=== PATIENT | male | born 1960 | race Caucasian/White ===

== ENCOUNTER → 2017-01-09 | Outpatient (CLI) | payer BC ==
[~2017-01-09] MED LIST: AMIT50TA3 PO; ASP81TEC PO; ASPI-983 PO; ATOR20TA66 PO; ATR20T PO; Atorvastatin Calcium PO; BRILINTA 90 MG; CETI10CA PO; FINA5TAB6 PO; FLUT16SP22; LISI10TA2 PO; LISI20TA PO; Lisinopril PO; METO-333 PO; NITR0.4T SL; NTR.4SL SL; OMEP-10 PO; ONDAN4ODT PO; OXYC500S2 PO; PANT40TA2 PO; PANT40TA3 PO; PNT40TEC PO; RANO500T3 PO; TAMS0.4C2 PO; TAMS0.4C98 PO; TICA60TA PO; TICA90TA PO
== END ==
LOC: CARD 10:31
PROVIDERS: ATTEND Physician Assistant
DX: I25.10 Atherosclerotic heart disease of native coronary artery without angina pectoris (principal); K21.9 Gastro-esophageal reflux disease without esophagitis; I10 Essential (primary) hypertension; E78.2 Mixed hyperlipidemia
CPT/HCPCS: 93306

== ENCOUNTER 2018-03-17 16:05 | Outpatient (RCR) | payer BC | END 2018-04-16 | disposition home or self-care (01) | LOC: CR3 16:05 | PROVIDERS: ATTEND Internal Medicine Cardiovascular Disease | DX: Z29.8 Encounter for other specified prophylactic measures (principal) ==

== ENCOUNTER → 2018-07-07 | Outpatient (CLI) | payer BC | END | disposition home or self-care (01) | LOC: PREOP 05:38 | PROVIDERS: ATTEND Surgery | DX: Z01.818 Encounter for other preprocedural examination (principal) ==

== ENCOUNTER → 2018-07-09 | Outpatient (CLI) | payer BC ==
--- NOTE | 2018-07-09 09:37 | Diagnostic Imaging Report ---
PROCEDURE: US Gallbladder. TECHNIQUE: Multiple real-time grayscale images were obtained over the right upper quadrant in various projections. INDICATION: Right upper quadrant pain. FINDINGS: The liver is normal in size at 15.5 cm. No discrete liver mass is identified. Portal vein is patent and shows normal direction of flow. There does appear to be generalized gallbladder wall thickening measuring up to 4 mm. No gallstones are seen. There is no sludge. No pericholecystic fluid or biliary duct dilatation is identified. The pancreas is poorly visualized. The right kidney is unremarkable. There is no ascites. IMPRESSION: There is mild gallbladder wall thickening, without evidence of cholelithiasis. Acalculous cholecystitis cannot be entirely excluded. If there is concern for cholecystitis, nuclear medicine HIDA scan could be performed for further evaluation. The study is otherwise unremarkable. Dictated by: Dictated on workstation # [id number]
== END ==
LOC: RAD 06:42
PROVIDERS: ATTEND Surgery
DX: K82.9 Disease of gallbladder, unspecified (principal); K81.9 Cholecystitis, unspecified
CPT/HCPCS: 76705

== ENCOUNTER → 2018-07-16 | Outpatient (CLI) | payer BC ==
[~2018-07-16] MED LIST changes: +CATHETER FLUSH 10 ML SYR IV PRN
--- NOTE | 2018-07-16 12:27 | Diagnostic Imaging Report ---
INDICATION: Right upper quadrant pain. TECHNIQUE: Patient was administered 5.1 mCi technetium 99m Choletec intravenously and imaging over the abdomen was performed. At one hour, patient ingested a can of Ensure and gallbladder ejection fraction was calculated. FINDINGS: There is homogeneous uptake of activity by the liver. Prompt excretion of activity is seen into the common duct and gallbladder. Normal passage of activity into the small bowel is seen. Gallbladder ejection fraction is abnormally low at 3%. Normal values are 33% or greater. IMPRESSION: 1. No evidence of cystic duct or common bile duct obstruction. 2. Abnormally low gallbladder ejection fraction of 3%. Dictated by: Dictated on workstation # [id number]
== END ==
LOC: CARD 09:48
PROVIDERS: ATTEND Surgery
DX: R10.11 Right upper quadrant pain (principal)
CPT/HCPCS: 78227

== ENCOUNTER 2018-08-09 05:35 | Outpatient (CLI) | payer BC ==
[~2018-08-09] VITALS: Ht 172.7 cm; Wt 70.8 kg
[~2018-08-09 05:35] MED LIST changes: -CATHETER FLUSH 10 ML SYR IV PRN
[2018-08-09] MEDS ORDERED: TAMS0.4C98 PO (14:50)
== END 2018-08-09 15:04 | disposition home or self-care (01) ==
LOC: PREOP 05:35
PROVIDERS: ATTEND Surgery
DX: Z01.818 Encounter for other preprocedural examination (principal)

== ENCOUNTER 2018-08-12 07:46 | Day surgery (SDC) | payer BC ==
[~2018-08-12] VITALS: Ht 172.7 cm; Wt 70.8 kg
[2018-08-12] MEDS ORDERED: BUP/EPI 0.5% 1:200,000 (SENSORCAINE) 30 ML VIAL ONE (07:56)
[2018-08-12 08:00] VITALS: BP 134/85
[2018-08-12] MEDS ORDERED: CLINDAMYCIN 600 MG/50 ML IVPB 50 ML IV ONE (08:15)
[2018-08-12] MEDS ORDERED: CATHETER FLUSH 10 ML SYR IV PRN (08:15)
--- NOTE | 2018-08-12 08:22 | Progress Note-Pre Operative ---
Pre-Operative Progress Note H&P Reviewed The H&P was reviewed, patient examined and no changes noted. Date Seen by Provider: Aug 12, 2018 Time Seen by Provider: 08:20 Date H&P Reviewed: Aug 12, 2018 Time H&P Reviewed: 08:15 Pre-Operative Diagnosis: Biliary Dyskinesia FRANCISCO CAMP APRN Aug 12, 2018 08:22
[2018-08-12] MEDS ORDERED: HYDR-3816 PO ×2 (08:24)
--- NOTE | 2018-08-12 08:26 | Discharge Inst-Surgical ---
D/C Lap Instructions-KIDO New, Converted, or Re-Newed RX: RX on Chart Follow Up Appt in 2 weeks Activity as tolerated No driving for 24 hours No driving while on pain medications Incentive Spirometry use every 2 hours while awake Regular Diet Symptoms to Report: Fever over 101 degree F, Nausea/Vomiting Infection Signs and Symptoms to report: Increased redness, Foul odor of wound, Increased drainage Bathing instructions: May shower Operative Area Clean/Dry; Keep incision clean/dry If any problems/questions: Contact your physician or go to Emergency Room FRANCISCO CAMP APRN Aug 12, 2018 08:26
[2018-08-12] MEDS ORDERED: morphine INJ 10 MG/ML 1ML (SYR OR VIAL) IVP PRN (08:30)
[2018-08-12] MEDS ORDERED: ONDANSETRON 4 MG/2 ML (SDV) Z0FRAN IVP PRN ×2 (08:30→10:30)
[2018-08-12] MEDS: LACTATED RINGERS 1,000 ML IV PRN ×2 (08:30→09:55)
[2018-08-12] MEDS ORDERED: ACETAMINOPHEN 325 MG TABLET PO PRN (08:30)
[2018-08-12] MEDS ORDERED: HYDROcodone/APAP 5 MG/325 MG (LORTAB) TAB PO ONE (08:30)
[2018-08-12 08:41] LABS: BASOPHILS % (AUTO) 1 % (0-10); EOSINOPHILS # (AUTO) 0.2 10^3/uL (0.0-0.3); EOSINOPHILS % (AUTO) 5 % (0-10); HEMATOCRIT 40 % (40-54); HEMOGLOBIN 13.8 G/DL (13.3-17.7); LYMPHOCYTES # (AUTO) 1.5 X 10^3 (1.0-4.0); LYMPHOCYTES % (AUTO) 36 % (12-44); MEAN CORPUSCULAR HEMOGLOBIN 29 PG (25-34); MEAN CORPUSCULAR HGB CONC 34 G/DL (32-36); MEAN CORPUSCULAR VOLUME 86 FL (80-99); MEAN PLATELET VOLUME 10.3 FL (7.4-10.4); MONOCYTES # (AUTO) 0.5 X 10^3 (0.0-1.0); MONOCYTES % (AUTO) 13 % (0-12); NEUTROPHILS # (AUTO) 1.8 X 10^3 (1.8-7.8); NEUTROPHILS % (AUTO) 45 % (42-75); PLATELET COUNT 193 10^3/uL (130-400); RED CELL DISTRIBUTION WIDTH 13.6 % (10.0-14.5)
[2018-08-12] MEDS ORDERED: proPOfol 200 MG/20 ML (DIPRIVAN) VIAL IV ONE (08:50)
[2018-08-12] MEDS ORDERED: LIDOCAINE PF 2% 5 ML (XYLOCAINE) VIAL ONE (08:50)
[2018-08-12] MEDS ORDERED: SEVOFLURANE (ULTANE) 15 ML INHAL SOLN ONE ×2 (08:50→10:02)
[2018-08-12] MEDS ORDERED: DEXAMETHASONE 10 MG/ML (DECADRON) 1 ML VIAL ONE (08:50)
[2018-08-12] MEDS ORDERED: ONDANSETRON 4 MG/2 ML (SDV) Z0FRAN ONE (08:50)
[2018-08-12] MEDS ORDERED: ROCURONIUM 10 MG/ML 5 ML SYRINGE IV ONE (08:50)
[2018-08-12] MEDS ORDERED: MIDAZOLAM 2 MG/2 ML (VERSED) VIAL ONE (08:51)
[2018-08-12] MEDS ORDERED: fentaNYL INJECTION 100 MCG/2 ML AMP ONE ×2 (08:51→09:59)
[2018-08-12] MEDS ORDERED: GLYCOPYRROLATE 0.2 MG/ML (ROBINUL) 2 ML VIAL ONE ×2 (09:22→09:52)
[2018-08-12] MEDS ORDERED: PHENYLEPHRINE 100 MCG/ML 10 ML (ANESTHESIA) SYR ONE (09:33)
[2018-08-12] MEDS ORDERED: NEOSTIGMINE 1 MG/ML 5 ML SYRINGE ONE (09:52)
[2018-08-12] MEDS ORDERED: morphine INJ 10 MG/ML 1ML (SYR OR VIAL) ONE (10:00)
[2018-08-12] MEDS ORDERED: KETOROLAC 30 MG/ML VIAL ONE (10:05)
--- NOTE | 2018-08-12 10:20 | Progress Note-Post Operative ---
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
[2018-08-12] MEDS ORDERED: HYDROmorphone 2 MG/ML VIAL (DILAUDID) IV ONE (10:30)
[2018-08-12] MEDS ORDERED: morphine INJ 10 MG/ML 1ML (SYR OR VIAL) IVP ONE (11:00)
[2018-08-12 11:20] VITALS: BP 136/79
[2018-08-12 11:50] VITALS: BP 143/86
[2018-08-12 12:20] VITALS: BP 134/74
--- NOTE | 2018-08-12 13:02 | Anesthesia-General Post-Op ---
General Patient Condition Mental Status/LOC: Same as Preop Cardiovascular: Satisfactory Nausea/Vomiting: Absent Respiratory: Satisfactory Pain: Controlled Complications: Absent Post Op Complications Complications None Follow Up Care/Instructions Patient Instructions None needed. Anesthesia/Patient Condition Patient Condition Patient is doing well, no complaints, stable vital signs, no apparent adverse anesthesia problems. No complications reported per nursing. JOY RAMIREZ CRNA Aug 12, 2018 13:02
[2018-08-12] MEDS ORDERED: HYDROcodone/APAP 5 MG/325 MG (LORTAB) TAB ONE (13:05)
[2018-08-12 13:15] VITALS: BP 134/74
--- NOTE | 2018-08-12 14:40 | OPERATIVE REPORT ---
DATE OF SERVICE: 08/12/2018 ATTENDING PRIMARY CARE PHYSICIAN: Dr. Frey. PREOPERATIVE DIAGNOSIS: Symptomatic biliary dyskinesia. POSTOPERATIVE DIAGNOSIS: Symptomatic biliary dyskinesia. PROCEDURE: Laparoscopic cholecystectomy. SURGEON: Bronson Awan MD. DIRECTOR COLLEGE: Zach King APRN. ANESTHESIA: General endotracheal. ESTIMATED BLOOD LOSS: Minimal. FINDINGS: Dilated gallbladder with mild gallbladder wall thickening. DISPOSITION: The patient tolerated the procedure well. INDICATIONS: The patient is a 57-year-old male who we have seen before in the past. He had a significant reflux as well as a hiatal hernia, requiring a Michelle fundoplication 05/09/2010. He was seen in the office recently with nausea as well as vomiting usually after meals as well as a bloating sensation. He also had reported radiation of pain towards the back as well as the right shoulder. An ultrasound performed did not show any gallstones; however, HIDA scan was performed which showed a very low ejection fraction of 3% consistent with a symptomatic biliary dyskinesia. DESCRIPTION OF PROCEDURE: The patient was brought to the operating room, laid supine on the table. After adequate IV pain and sedating medications and general endotracheal intubation, the abdomen was prepped and draped in standard surgical fashion. A 0.5% Marcaine with epinephrine was used to anesthetize the overlying skin in the left upper abdominal quadrant and a transverse skin incision made using a 15 blade. An 0 silk suture was applied to the medial aspect of the incision for retraction and a Veress needle inserted with a low opening pressure of 0 mmHg and the abdomen was insufflated to 15 mmHg pressure. The Veress needle removed and a 5 mm trocar placed followed by a 5 mm 45-degree angle laparoscope visualizing the peritoneal cavity. A 4-quadrant abdominal exploration was performed. There was a distended gallbladder as well as mild gallbladder wall thickening. No other abnormalities were detected. Under direct visualization, we then proceeded to place a supraumbilical 10 mm port after the skin and peritoneal lining were anesthetized using 0.5% Marcaine with epinephrine and a transverse skin incision made using a 15 blade. In a similar manner, a right upper abdominal quadrant 5 mm port was placed. The patient was then placed in reverse Trendelenburg position as well as plane right side up, left side down. The fundus of the gallbladder was then retracted anteriorly and superiorly. The hepatoduodenal ligament was then opened using a blunt dissection as well as electrocautery on the hook instrument. The entire critical view of safety was identified including the cystic duct and artery, the triangle of Calot as well as the cystic duct and artery as the only two structures going into the gallbladder as well as the cystic plate behind the proximal gallbladder. A timeout was then taken. The cystic duct and artery were clipped proximally and distally and cut with EndoShears. The gallbladder was then dissected off the liver bed using cautery on the hook instrument with visualization of good hemostasis as well as no leaking ducts of Luschka. The gallbladder was removed through the 10 mm port site using an EndoCatch bag. The 10 mm port site fascia and peritoneum were then closed under direct visualization using a Patrice-Erika device and an 0 Vicryl suture. The abdomen was desufflated and remaining ports removed. All skin incisions were closed using 4-0 Monocryl running subcuticular suture. Wounds were then cleaned and covered with Dermabond. The patient tolerated the procedure well. We will start IV and oral pain medication as well as a clear liquid diet. Once he is tolerating clears, has good pain control with oral pain medications, ambulating well, we will discharge him home. He will be instructed to do no heavy lifting or exertion for the next two weeks. Job ID: [id number] DocumentID: [id number] Dictated Date: 08/12/2018 10:17:54 Roto Mixer Operator Date: 08/12/2018 14:40:13 Dictated By: BRONSON AWAN MD
== END 2018-08-12 13:15 | disposition home or self-care (01) ==
LOC: SDC 07:46
PROVIDERS: ATTEND Surgery
DX: K81.1 Chronic cholecystitis (principal); I25.10 Atherosclerotic heart disease of native coronary artery without angina pectoris; I10 Essential (primary) hypertension; K21.9 Gastro-esophageal reflux disease without esophagitis; G47.33 Obstructive sleep apnea (adult) (pediatric); E78.00 Pure hypercholesterolemia, unspecified; N40.1 Benign prostatic hyperplasia with lower urinary tract symptoms; N39.498 Other specified urinary incontinence; Z87.891 Personal history of nicotine dependence; Z79.82 Long term (current) use of aspirin; Z79.899 Other long term (current) drug therapy; Z95.5 Presence of coronary angioplasty implant and graft
CPT/HCPCS: 36415; 85025; 87081; 94664

== ENCOUNTER 2018-08-12 18:43 | Emergency (ER) | payer BC ==
[~2018-08-12] VITALS: Ht 172.7 cm; Wt 71.2 kg
[~2018-08-12 18:43] MED LIST changes: +HYDR-3816 PO
[2018-08-12] MEDS ORDERED: LIDOCAINE UROJET 2% GEL 10 ML PKG TOP ONE (19:30)
[2018-08-12] MEDS ORDERED: ONDANSETRON 4 MG (ZOFRAN) ORAL DISSOLVE TAB PO ONE (19:45)
--- NOTE | 2018-08-12 20:07 | ED GU-Male ---
General Chief Complaint: -Male Stated Complaint: CAN'T URINATE,POST GALLBLADDER OPERATION Nursing Triage Note: pt presents to ed with complaints of difficulty urinating after cholecystectomy surgery earlier today. pt reports his bladder feels full but he has been unable to void since this am. Source: patient Exam Limitations: no limitations History of Present Illness Date Seen by Provider: Aug 12, 2018 Time Seen by Provider: 20:04 Initial Comments to ER per private vehicle with reports of inability to urinate. He had a laparoscopic cholecystectomy done earlier today by Dr. Mcintosh. This was about 9 AM , no he was released from the hospital at about 3 PM. He has been unable to urinate. He does take Flomax for prostatic hypertrophy and follows with Dr. Deleon. Severity/Quality: moderate Location: suprapubic Radiation: none Activities at Onset: none Prior Genitourinary Problems: none Associated Symptoms: No fever/chills Allergies and Home Medications Allergies Coded Allergies: Penicillins (Unverified Allergy, Mild, HIVES, HAS RECEIVED ANCEF PREVIOUSLY, 08/09/18) Home Medications Aspirin 81 Mg Tablet.dr, 162 MG PO DAILY, (Reported) TAKES 2 (81MG) TABLETS Atorvastatin Calcium 20 Mg Tablet, 20 MG PO HS, (Reported) Hydrocodone/Acetaminophen 1 Each Tablet, 1-2 TAB PO Q4H Prescribed by: FRANCISCO CAMP on 08/12/18 0824 Pantoprazole Sodium 40 Mg Tablet.dr, 40 MG PO BID, (Reported) Tamsulosin HCl 0.4 Mg Cap.er.24h, 0.8 MG PO 1730, (Reported) TAKES 2 (0.4MG) CAPSULES Patient Home Medication List Home Medication List Reviewed: Yes Review of Systems Review of Systems Constitutional: see HPI EENTM: see HPI Respiratory: no symptoms reported Cardiovascular: no symptoms reported Genitourinary: no symptoms reported Musculoskeletal: no symptoms reported Skin: no symptoms reported Psychiatric/Neurological: No Symptoms Reported Endocrine: No Symptoms Reported Hematologic/Lymphatic: No Symptoms Reported Past Eyamikj-Qheekz-Kkvssm Hx Patient Social History Alcohol Use: Denies Use Recreational Drug Use: Yes (35 YRS AGO) Smoking Status: Former Smoker Type Used: Cigarettes Former Smoker, Quit: Mar 11, 1977 2nd Hand Smoke Exposure: Yes Recent Foreign Travel: No Contact w/Someone Who Travel: No Recent Infectious Disease Expo: No Recent Hopitalizations: No Immunizations Up To Date Tetanus Booster (TDap): Less than 5yrs PED Vaccines UTD: No Seasonal Allergies Seasonal Allergies: Yes Past Medical History Surgeries: Yes (coronary stent x2, hitial hernia repair) Coronary Stent, Gallbladder Respiratory: Yes Sleep Apnea Currently Using CPAP: Yes Currently Using BIPAP: No Cardiac: Yes (2 NM, stents placed) Heart Attack, High Cholesterol, Hypertension Neurological: No Reproductive Disorders: No Sexually Transmitted Disease: No HIV/AIDS: No Genitourinary: Yes Prostate Problems Gastrointestinal: Yes Gastroesophageal Reflux, Chronic Diarrhea, Gall Bladder Disease Musculoskeletal: Yes (MUSCLE SPASMS IN BACK and legs) Endocrine: No HEENT: Yes (READING GLASSES) Loss of Vision: Bilateral Hearing Impairment: Hard of Hearing Cancer: No Psychosocial: No Integumentary: Yes (DRY AREAS) Blood Disorders: No Adverse Reaction/Blood Tranf: No Family Medical History Cancer 19 FATHER (BLADDER) Family history: Cardiovascular disease 19 FATHER, Onset:50's - 60 (BYPASS) Physical Exam Vital Signs Vital Signs - First Documented 08/12/18 19:07 Temp 97.4 Pulse 80 Resp 16 B/P (MAP) 172/102 (125) Pulse Ox 97 Capillary Refill : Less Than 3 Seconds Height, Weight, BMI Height: 5'8.00" Weight: 157lbs. 0.0oz. 71.130296ug; 23.7 BMI Method:Stated General Appearance: WD/WN, no apparent distress HEENT: PERRL/EOMI, normal ENT inspection Neck: non-tender, full range of motion Respiratory: no respiratory distress Gastrointestinal: normal bowel sounds, non tender Neurologic/Psychiatric: alert, normal mood/affect, oriented x 3 Skin: normal color, warm/dry Comments Urojet was instilled into the urethra. A 14 Wolof straight catheter was inserted into the bladder. Total of 1000 cc clear yellow urine drained. Sample sent to lab. Progress/Results/Core Measures Suspected Sepsis Recent Fever Within 48 Hours: No Infection Criteria Present: None New/Unexplained Altered Menta: No Sepsis Screen: No Definite Risk SIRS Temperature:97.4 Pulse: 80 Respiratory Rate: 16 Blood Pressure 172 /102 Mean: 125 Results/Orders Lab Results Laboratory Tests Test 08/12/18 19:50 Range/Units Urine Color YELLOW Urine Clarity SLIGHTLY CLOUDY Urine pH 7 5-9 Urine Specific [place] 1.010 L 1.016-1.022 Urine Protein NEGATIVE NEGATIVE Urine Glucose (UA) NEGATIVE NEGATIVE Urine Ketones NEGATIVE NEGATIVE Urine Nitrite NEGATIVE NEGATIVE Urine Bilirubin NEGATIVE NEGATIVE Urine Urobilinogen NORMAL NORMAL MG/DL Urine Leukocyte Esterase NEGATIVE NEGATIVE Urine RBC (Auto) NEGATIVE NEGATIVE Urine RBC 0-2 /HPF Urine WBC 0-2 /HPF Urine Crystals NONE /LPF Urine Bacteria NEGATIVE /HPF Urine Casts NONE /LPF Urine Mucus NEGATIVE /LPF Urine Culture Indicated NO My Orders Orders - JO ANN AGUILAR APRN Lidocaine 2% (Urojet) (Xylocaine Urojet) (08/12/18 19:30) Ondansetron Oral Dissolve Tab (Zofran (08/12/18 19:45) Hydrocodone/Apap 5/325 Tablet (Lortab 5 (08/12/18 20:30) Medications Given in ED Current Medications Medications Dose Ordered Sig/Barak Route Start Time Stop Time Status Last Admin Dose Admin Acetaminophen/ Hydrocodone Bitart 1 tab ONCE ONCE PO 08/12/18 20:30 08/12/18 20:31 DC 08/12/18 20:31 1 TAB Lidocaine HCl 10 ml ONCE ONCE TOP 08/12/18 19:30 08/12/18 19:31 DC 08/12/18 19:48 10 ML Ondansetron HCl 8 mg ONCE ONCE PO 08/12/18 19:45 08/12/18 19:46 DC 08/12/18 19:48 8 MG Vital Signs/I&O 08/12/18 19:07 Temp 97.4 Pulse 80 Resp 16 B/P (MAP) 172/102 (125) Pulse Ox 97 Capillary Refill : Less Than 3 Seconds Blood Pressure Mean: 125 Departure Communication (Admissions) 2205-despite waiting about an hour after the straight catheter, he attempted to urinate but was unable to do so. We decided to proceed with a indwelling Castillo catheter, 16 Wolof was inserted by me in a sterile technique. This was attached to a leg bag. I also spoke with Dr. Deleon, his urologist who states that patient can come in tomorrow at 11 AM to have the catheter removed or as he would recommend leaving it in place over the weekend until Thursday afternoon to have it removed. Impression Primary Impression: Postoperative urinary retention Disposition: 01 HOME, SELF-CARE Condition: Stable Departure-Patient Inst. Decision time for Depature: 20:06 Referrals: ESPERANZA TERAN DO (PCP/Family) Primary Care Physician Patient Instructions: Urinary Retention Add. Discharge Instructions: 1. You may follow up with Dr. Deleon tomorrow at 11 AM or if you wish to leave this in place until Thursday morning, call tomorrow for an appointment time on Thursday. Return to ER for any concerns in the meantime. All discharge instructions reviewed with patient and/or family. Voiced understanding. Copy Copies To 1: BRONSON MCINTOSH MD, PETER J APRN Aug 12, 2018 20:07
[2018-08-12 20:08] LABS: BILIRUBIN,URINE NEGATIVE (NEGATIVE); CLARITY,URINE SLIGHTLY CLOUDY; COLOR,URINE YELLOW; GLUCOSE, URINE (UA) NEGATIVE (NEGATIVE); KETONES,URINE NEGATIVE (NEGATIVE); LEUKOCYTE ESTERASE ,URINE NEGATIVE (NEGATIVE); NITRITE,URINE NEGATIVE (NEGATIVE); PH,URINE 7 (5-9); PROTEIN,URINE NEGATIVE (NEGATIVE); UROBILINOGEN,URINE NORMAL (NORMAL)
[2018-08-12 20:17] LABS: BACTERIA,URINE NEGATIVE /HPF; RBC,URINE 0-2 /HPF; WBC,URINE 0-2 /HPF
[2018-08-12] MEDS ORDERED: HYDROcodone/APAP 5 MG/325 MG (LORTAB) TAB PO ONE (20:30)
[2018-08-12 22:09] VITALS: BP 168/102
== END 2018-08-12 22:11 | disposition home or self-care (01) ==
LOC: EDUNIT# 18:43 → ER 18:45
DX: N99.89 Other postprocedural complications and disorders of genitourinary system (principal); R33.9 Retention of urine, unspecified; G47.30 Sleep apnea, unspecified; I25.2 Old myocardial infarction; E78.00 Pure hypercholesterolemia, unspecified; K21.9 Gastro-esophageal reflux disease without esophagitis; I10 Essential (primary) hypertension; Z88.0 Allergy status to penicillin; Z87.19 Personal history of other diseases of the digestive system; Z79.82 Long term (current) use of aspirin; Z90.49 Acquired absence of other specified parts of digestive tract; Z87.448 Personal history of other diseases of urinary system; Z87.891 Personal history of nicotine dependence; Z95.5 Presence of coronary angioplasty implant and graft; Z98.890 Other specified postprocedural states
CPT/HCPCS: 51701; 51702; 81000

== ENCOUNTER → 2018-12-29 | Outpatient (CLI) | payer BC ==
[~2018-12-29] VITALS: Ht 172.7 cm; Wt 75.3 kg
[~2018-12-29] MED LIST changes: +CATHETER FLUSH 10 ML SYR IV PRN
--- NOTE | 2018-12-30 11:58 | STRESS TEST ---
DATE OF SERVICE: 12/29/2018 REFERRING PHYSICIAN: Dr. Frey. Baseline heart rate is 57, baseline blood pressure 141/76, baseline EKG is sinus rhythm with no ischemic changes. IN SUMMARY: The patient was injected with 10.73 mCi of technetium-99 Myoview and the resting images were obtained. Then, the patient started exercising with a baseline heart rate, blood pressure and EKG mentioned above. After exercising for 8 minutes and 10 seconds, the patient had some chest pain, had [address] depression in II, III, aVF, V4, V5. Blood pressure was 180/90. Test was terminated. During recovery, EKG started improving, continued to have T-wave inversion. Denied any active chest pain after resting. The resting and stress images were reviewed and compared in the short axis, horizontal long axis and vertical long axis views. Review of the images showed reversible ischemia involving the whole inferior wall and inferolateral wall. SSS is 16, SDS 14, TID value 1.09. On the gated images, the left ventricle appeared to be in normal size with normal contractility. Calculated ejection fraction 54%. IN CONCLUSION: 1. Fair exercise tolerance, a total of 8 minutes and 10 seconds on standard Pablo protocol, total of 9.9 METS achieving 85% of maximum expected heart rate. 2. Exercise induced chest pain relieved by rest. 3. Positive EKG changes with [address] depression in II, III, aVF, V4 and V5. 4. Reversible ischemia involving the whole inferior wall and inferolateral wall. 5. Normal left ventricular size with normal contractility. Calculated ejection fraction of 54%. Job ID: [id number] DocumentID: [id number] Dictated Date: 12/30/2018 08:36:46 Training And Development Professional Date: 12/30/2018 10:38:08 Dictated By: LARISSA CARBONE MD
== END ==
LOC: CARD 08:05
PROVIDERS: ATTEND Physician Assistant
DX: I25.10 Atherosclerotic heart disease of native coronary artery without angina pectoris (principal); I11.9 Hypertensive heart disease without heart failure; I25.89 Other forms of chronic ischemic heart disease; K21.9 Gastro-esophageal reflux disease without esophagitis
CPT/HCPCS: 78452; 93017

== ENCOUNTER → 2019-03-08 | Outpatient (CLI) | payer BC ==
[~2019-03-08] MED LIST changes: -CATHETER FLUSH 10 ML SYR IV PRN
== END ==
LOC: CARD 08:27
PROVIDERS: ATTEND Internal Medicine Cardiovascular Disease
DX: I08.0 Rheumatic disorders of both mitral and aortic valves (principal); I25.10 Atherosclerotic heart disease of native coronary artery without angina pectoris; I10 Essential (primary) hypertension; E78.5 Hyperlipidemia, unspecified
CPT/HCPCS: 93306

== ENCOUNTER 2019-05-16 11:58 | Outpatient (RCR) | payer BC | END 2019-05-29 | disposition home or self-care (01) | LOC: CR 11:58 | PROVIDERS: ATTEND Thoracic Surgery (Cardiothoracic Vascular Surgery) | DX: Z48.812 Encounter for surgical aftercare following surgery on the circulatory system (principal); Z95.1 Presence of aortocoronary bypass graft | CPT/HCPCS: 93798 ==

== ENCOUNTER → 2019-07-04 | Outpatient (CLI) | payer BC ==
[~2019-07-04] VITALS: Ht 172 cm; Wt 75.0 kg
[~2019-07-04] MED LIST changes: +CATHETER FLUSH 10 ML SYR IV PRN; -TAMS0.4C98 PO; +TMSL.4C PO
--- NOTE | 2019-07-04 11:44 | STRESS TEST ---
DATE OF SERVICE: 07/04/2019 AN EXERCISE MYOVIEW STRESS TEST REPORT REFERRING PHYSICIAN: Dr. Frey. Baseline heart rate is 53. Baseline blood pressure is 126/72. Baseline EKG is sinus rhythm with no ischemic changes. In summary, the patient was injected with 10.33 mCi of technetium-99 Myoview and the resting images were obtained. Then, the patient started exercising with a baseline heart rate, blood pressure and EKG mentioned above. The patient was able to exercise for 10 minutes 30 seconds on a standard Pablo protocol. With peak exercise level, EKG was showing [address] depression in II, III, aVF, V4, V5, V6. Blood pressure was 206/101. During recovery, heart rate and blood pressure returned to baseline. EKG returned to baseline. The resting and stress images were reviewed and compared in the short axis, horizontal long axis, and vertical long axis views. Review of the images showed good radiotracer uptake with diaphragmatic attenuation with typical male pattern. No significant ischemia or infarction. SSS is 0. TID value 1.0. On the gated images, the left ventricle appeared to be normal size with normal contractility. Calculated ejection fraction is 59%. CONCLUSION: 1. Excellent exercise tolerance for a total of 10 minutes 30 seconds on a standard Pablo protocol, total of 12.1 METS achieving 97% of maximum expected heart rate. 2. Hypertensive response to exercise with peak blood pressure 206/101 returned to baseline during recovery. 3. Nondiagnostic EKG changes with exercise returned to baseline during recovery. 4. Diaphragmatic attenuation with typical male pattern with no ischemia or infarction on SPECT images. 5. Normal left ventricular size with normal contractility. Calculated ejection fraction is 59%. Job ID: [id number] DocumentID: [id number] Dictated Date: 07/04/2019 11:08:23 Director Game Date: 07/04/2019 11:43:28 Dictated By: LRAISSA CARBONE MD
== END ==
LOC: CARD 07:33
PROVIDERS: ATTEND Internal Medicine Cardiovascular Disease
DX: I10 Essential (primary) hypertension (principal); R06.09 Other forms of dyspnea; I25.10 Atherosclerotic heart disease of native coronary artery without angina pectoris; R42 Dizziness and giddiness
CPT/HCPCS: 78452; 93017

== ENCOUNTER → 2021-02-25 | Outpatient (CLI) | payer BC ==
[~2021-02-25] MED LIST changes: +ASPI-1238 PO; -ASPI-983 PO; -CATHETER FLUSH 10 ML SYR IV PRN; +HYDR-34 PO; -HYDR-3816 PO; -LISI10TA2 PO; +LISI10TA25 PO; -PANT40TA3 PO; +PANT40TA52 PO
== END ==
LOC: LABNPT 08:00
PROVIDERS: ATTEND Otolaryngology Otolaryngology/Facial Plastic Surgery
DX: G47.33 Obstructive sleep apnea (adult) (pediatric) (principal); Z20.822 Contact with and (suspected) exposure to COVID-19
CPT/HCPCS: 87635

== ENCOUNTER 2021-02-27 20:07 | Outpatient (CLI) | payer BC | END 2021-02-28 06:42 | disposition home or self-care (01) | LOC: SLEEP 20:07 | PROVIDERS: ATTEND Otolaryngology Otolaryngology/Facial Plastic Surgery | DX: G47.33 Obstructive sleep apnea (adult) (pediatric) (principal); J95.850 Mechanical complication of respirator; Z99.11 Dependence on respirator [ventilator] status | CPT/HCPCS: 87635; 95811 ==

== ENCOUNTER 2021-04-26 09:04 | Outpatient (CLI) | payer BC ==
[~2021-04-26] VITALS: Ht 172.7 cm; Wt 83.9 kg
[2021-04-26] MEDS ORDERED: EPINEPHrine INJECTION 1 MG/ML AMP IM PRN (09:15)
[2021-04-26] MEDS ORDERED: diphenhydrAMINE 50 MG/ML INJ (BENADRYL) IV PRN (09:15)
[2021-04-26] MEDS ORDERED: ACETAMINOPHEN 500 MG TAB (TYLENOL) PO PRN (09:30)
[2021-04-26] MEDS ORDERED: ONDANSETRON 4 MG/2 ML (SDV) Z0FRAN IV PRN (09:30)
[2021-04-26] MEDS ORDERED: CASIRIVIMAB/IMDEVIMAB 1,200 MG in NS (IVPB) 250 ML IV ONE (09:30)
[2021-04-26 09:31] VITALS: BP 137/70
[2021-04-26 10:37] VITALS: BP 131/74
== END 2021-04-26 10:40 | disposition home or self-care (01) ==
LOC: INFUSION 09:04
PROVIDERS: ATTEND Nurse Practitioner Family
DX: U07.1 COVID-19 (principal)

== ENCOUNTER → 2021-05-09 | Outpatient (CLI) | payer BC | LOC: CARD 13:00 | PROVIDERS: ATTEND Physician Assistant | DX: I08.0 Rheumatic disorders of both mitral and aortic valves (principal); I11.9 Hypertensive heart disease without heart failure; I25.10 Atherosclerotic heart disease of native coronary artery without angina pectoris | CPT/HCPCS: 93306 ==

== ENCOUNTER → 2021-06-05 | Outpatient (CLI) | payer BC ==
[~2021-06-05] VITALS: Ht 170 cm; Wt 85.0 kg
[~2021-06-05] MED LIST changes: +CATHETER FLUSH 10 ML SYR IV PRN
[2021-06-05 13:31] VITALS: BP 140/84
--- NOTE | 2021-06-05 14:52 | Cardiology Stress Test Report ---
Stress Test Report Date of Procedure/Referring: Date of Procedure: Jun 05, 2021 Sylvie E[place]a Admitting Physician Chary Frey DO Indications: HTN Baseline Heart Rate: 58 Baseline Blood Pressure: Blood Pressure Systolic: 140 Blood Pressure Diastolic: 84 Vital Signs Date Time Temp Pulse Resp B/P (MAP) Pulse Ox O2 Delivery O2 Flow Rate FiO2 06/05/21 13:31 58 140/84 (102) Baseline Vital Signs Vital Signs Date Time Temp Pulse Resp B/P (MAP) Pulse Ox O2 Delivery O2 Flow Rate FiO2 06/05/21 13:31 58 140/84 (102) Baseline EKG: Baseline EKG: NSR Summary: After explaining the procedure and details to the patient, he signed the consent and was brought to the stress nuclear laboratory. Patient exercised on standard Pablo protocol, EKG, heart rate and blood pressure were monitored continuously, resting and stress doses of radio tracer were injected, imaging was acquired and reviewed in the short axis, horizontal long axis and vertical long axis views Patient was able to exercise for a total of 8 minutes on Pablo protocol, METs 9.7 Maximum heart rate 146 Maximum blood pressure 184/74 Stress EKG, Minimal nondiagnostic changes Recovery EKG, Return to baseline TID: 0.79 SSS: 8 SDS: 6 EF: 56 Conclusion: 1. Good exercise tolerance for a total of 8 minutes on standard Pablo protocol, 9.7 METS achieving 91% of maximal expected heart rate 2. Appropriate heart rate and blood pressure response to exercise return to baseline during recovery 3. Significant motion artifact affecting the quality of the images, there is reversible ischemia involving the inferior wall and inferoapical segment 4. Normal left ventricular size, EF 56% LARISSA CARBONE MD Jun 05, 2021 14:52
== END ==
LOC: CARD 11:45
PROVIDERS: ATTEND Physician Assistant
DX: I10 Essential (primary) hypertension (principal); I25.10 Atherosclerotic heart disease of native coronary artery without angina pectoris
CPT/HCPCS: 78452; 93017; A9502

== ENCOUNTER 2021-06-12 14:00 | Day surgery (SDC) | payer BC ==
[~2021-06-12] VITALS: Ht 172.7 cm; Wt 84.4 kg
[2021-06-12 12:33] VITALS: BP 126/84
[2021-06-12 12:35] LABS: HEMATOCRIT 40 % (40-54); HEMOGLOBIN 13.6 g/dL (13.3-17.7); MEAN CORPUSCULAR HEMOGLOBIN 30 pg (25-34); MEAN CORPUSCULAR HGB CONC 34 g/dL (32-36); MEAN CORPUSCULAR VOLUME 89 fL (80-99); MEAN PLATELET VOLUME 10.3 fL (9.0-12.2); PLATELET COUNT 202 10^3/uL (130-400); WHITE BLOOD COUNT 7.2 10^3/uL (4.3-11.0)
[2021-06-12 12:46] LABS: INR 0.9 (0.8-1.4); PROTHROMBIN TIME PATIENT 12.8 SEC (12.2-14.7)
[2021-06-12 12:57] LABS: ALBUMIN 4.2 GM/DL (3.2-4.5); BILIRUBIN,TOTAL 0.6 MG/DL (0.1-1.0); CREATININE SERUM 1.01 MG/DL (0.60-1.30); POTASSIUM 3.6 MMOL/L (3.6-5.0); TOTAL PROTEIN 6.7 GM/DL (6.4-8.2)
--- NOTE | 2021-06-12 12:58 | Diagnostic Imaging Report ---
INDICATION: Abnormal stress test, coronary artery disease, cardiac enlargement. COMPARISON: 03/11/16 FINDINGS: Single view chest demonstrates stable cardiac enlargement. Lungs are clear. There is no pneumothorax. Sternotomy wires midline. Osseous structures normal. IMPRESSION: No acute cardiopulmonary findings. Dictated by: Dictated on workstation # [id number]
--- NOTE | 2021-06-12 13:32 | Conscious Sedation/ASA ---
Conscious Sedation Pre-Proced Time 13:32 ASA Score 3 For ASA 3 and 4: Consider anesthesia and medical clearance. Also, for patients with a history of failed moderate sedation consider anesthesia. Airway Lungs Heart ASA score ASA 1: a normal healthy patient ASA 2: a patient with a mild systemic disease (mid diabetes, controlled hypertension, obesity x ASA 3: a patient with a severe systemic disease that limits activity (angina, COPD, prior Myocardial infarction) ASA 4: a patient with an incapacitating disease that is a constant threat to life (CHF, renal failure) ASA 5: a moribund patient not expected to survive 24 hrs. (ruptured aneurysm) ASA 6: a declared brain- patient whose organs are being harvested. For emergent operations, add the letter E after the classification Mallampati Classification Grade 3 Sedation Plan Analgesia, Amnesia, Plan communicated to team members, Discussed options with patient/fam, Discussed risks with patient/fam The patient is an appropriate candidate to undergo the planned procedure, sedation, and anesthesia. The patient immediately re-assessed prior to indication. LARISSA CARBONE MD Jun 12, 2021 13:32
[~2021-06-12 14:00] MED LIST changes: +ATOR40TA70 PO; -CATHETER FLUSH 10 ML SYR IV PRN; +FERR-74 PO; +HEParin (CATH LAB) 2,000 ML IV ONE; +LIDOCAINE 1% INJ 20 ML VIAL ONE; +MIDAZOLAM 5 MG/5 ML (VERSED) VIAL ONE; +MTP25TSR PO; +NS IV 1000 ML 1,000 ML IV SCH; +NS IV 1000 ML 1,000 ML ONE; +fentaNYL INJ 100 MCG/2 ML AMP ONE
--- NOTE | 2021-06-12 14:25 | Cardiac Cath Report ---
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 After explaining the procedure to the patient, all pros and cons were explained, all questions were answered. The patient signed the consent and then he was placed on the cardiac catheterization laboratory. Groin was prepped SL fashion local anesthesia was used. Sheath placed in the artery. Bri right and left catheter were used to access the coronary system.Vein Graft evaluated. CAMARGO evaluated. Bri right was advanced to the left ventricular cavity, pressure was measured, no left ventriculogram was done. At the end of the procedure the sheath was removed. Closure device was used FINDINGS: Hemodynamics LV 120/11, end-diastolic pressure of 11 Aorta 113/56 mean of 81 ANATOMY: Left Main is free of obstructive disease, mild disease at the distal left main Left Anterior Descending is slightly tortuous with mild to moderate disease nonobstructive disease Left Circumflex is totally occluded at the midportion, CAMARGO to the obtuse marginal branch is patent with excellent flow Right Coronary Artery is totally occluded at the midportion CAMARGO angiogram showed patent CAMARGO to the obtuse marginal branch with excellent f low Vein Graft angiogram showed single vein graft to the right PDA with excellent flow distally LV Gram was not done, pressure was measured CONCLUSION: 1. Totally occluded mid circumflex artery with patent CAMARGO to the obtuse marginal branch with excellent flow distally 2. Totally occluded mid right coronary artery with patent vein graft to the right PDA with excellent flow distally 3. Mild disease at the distal left main, mild to moderate disease in the LAD nonobstructive disease 4. Normal left ventricular end-diastolic pressure DISCUSSION AND RECOMMENDATION: Maximizing medical therapy. No intervention is recommended Anesthesia Type: Conscious Sedation Estimated blood loss (mL): 15 ml Contrast Amount: 50 ml Total Radiation Dose: 436 mGy Post-Procedure Diagnosis Post-operative diagnosis: Chest pain Coronary artery disease Hypertension Hyperlipidemia LARISSA CARBONE MD Jun 12, 2021 14:25
[2021-06-12] MEDS ORDERED: NS IV 1000 ML 1,000 ML IV SCH (14:30)
[2021-06-12] MEDS ORDERED: PATIENT MAY USE OWN MEDS, ALL PO SCH (14:30)
--- NOTE | 2021-06-12 15:26 | Discharge Inst-Post CATH ---
Discharge Inst-CATH/EP Problems Reviewed?: Yes Post Cardiac Cath/EP D/C Inst Follow Up/Plan Appointment with Dr. Juarez's office in 2 to 4 weeks <b>CARDIAC CATH/EP PROCEDURE DISCHARGE INSTRUCTIONS</b> ACTIVITY * Go Home directly and rest. * Limit activity of the leg (or wrist if it was used) for 7 days including aer obics, swimming, jogging, bicycling, etc. * Restrict stair-climbing for 7 days if possible, if not, climb up with your non-cath leg, then bring together on the same step. * Avoid lifting, pushing, pulling or excessive movement of the affected extremi ty for 7 days. * Customary sexual activity may be resumed after 2 days-use caution not to use a position that strains or causes pain to the affected extremity. * No driving for 24 hours. * NO SMOKING. * Avoid straining for bowel movements for 7 days. * Gentle walking on level ground is allowed. * Returning to work will depend on the type of procedure and the results. Your doctor will discuss this with you. CALL YOUR DOCTOR FOR ANY OF THE FOLLOWING: *If bleeding from the puncture site occurs- Apply gentle pressure to site with clean cloth and call your doctor or EMS. * If a knot or lump forms under the skin, increases in size, or causes pain. * If bruising appears to be worsening or moving further down your leg instead of disappearing. * Temperature above 101 F. CARE OF YOUR GROIN INCISION; * Bruising or purple discoloration of the skin near the puncture site is common. * You may shower only, no bathtub bathing for 5 days. Be careful to avoid slipping as your leg may feel stiff. * If a closure device was used on your femoral artery, please see the attached guide regarding care of the device and your leg. * Leave dressing on FOR 24 hours. CARE OF YOUR WRIST INCISION; * Bruising or purple discoloration of the skin near the puncture site is common. * You may shower. * DO NOT submerge wrist. * Leave dressing on FOR 24 hours. LARISSA JUAREZ MD Jun 12, 2021 15:26
[2021-06-12 16:00] VITALS: BP 108/68
[2021-06-12] MEDS ORDERED: lisINopril 10 MG (PRINIVIL) TABLET PO SCH (21:00)
[2021-06-12] MEDS ORDERED: FERROUS SULF 325 MG (IRON) TAB PO SCH (21:00)
[2021-06-12] MEDS ORDERED: PANTOPRAZOLE 40 MG (PROTONIX) TAB PO SCH (21:00)
[2021-06-12] MEDS ORDERED: TAMSULOSIN 0.4 MG (FLOMAX) CAP PO SCH (21:00)
[2021-06-13] MEDS ORDERED: ASPIRIN E.C. 81 MG (ECOTRIN) TAB PO SCH (09:00)
== END 2021-06-12 18:30 | disposition home or self-care (01) ==
LOC: CATH 14:00 → CSD 14:39 → CATH 18:30
PROVIDERS: ATTEND Internal Medicine Cardiovascular Disease
DX: I25.10 Atherosclerotic heart disease of native coronary artery without angina pectoris (principal); I10 Essential (primary) hypertension; E78.2 Mixed hyperlipidemia; G47.33 Obstructive sleep apnea (adult) (pediatric); I65.23 Occlusion and stenosis of bilateral carotid arteries; K21.9 Gastro-esophageal reflux disease without esophagitis; Z87.891 Personal history of nicotine dependence; Z95.5 Presence of coronary angioplasty implant and graft; Z99.89 Dependence on other enabling machines and devices; Z79.899 Other long term (current) drug therapy; Z79.82 Long term (current) use of aspirin
CPT/HCPCS: 71045; 80053; 80061; 85027; 85610; 85730; 87081; 93459; C1760; C1894; 36415

== ENCOUNTER 2021-08-16 14:59 | Inpatient (IN) | payer BC ==
[~2021-08-16] VITALS: Ht 172.7 cm; Wt 86.2 kg
[~2021-08-16 14:59] MED LIST changes: -HEParin (CATH LAB) 2,000 ML IV ONE; -LIDOCAINE 1% INJ 20 ML VIAL ONE; -MIDAZOLAM 5 MG/5 ML (VERSED) VIAL ONE; -NS IV 1000 ML 1,000 ML IV SCH; -NS IV 1000 ML 1,000 ML ONE; -fentaNYL INJ 100 MCG/2 ML AMP ONE
[2021-08-16] MEDS ORDERED: ASPIRIN 81 MG CHEW (CHILDREN'S ASA) PO ONE (15:15)
[2021-08-16] MEDS ORDERED: ONDANSETRON 4 MG/2 ML (SDV) Z0FRAN IVP ONE (15:30)
[2021-08-16] MEDS ORDERED: LORazepam INJ 2 MG/ML (ATIVAN) VIAL IVP PRN (15:30)
[2021-08-16] MEDS ORDERED: LACTATED RINGERS 1,000 ML IV SCH (15:30)
[2021-08-16] MEDS ORDERED: IBUPROFEN 800 MG (MOTRIN) TAB PO ONE (15:30)
--- NOTE | 2021-08-16 15:33 | ED General ---
General Chief Complaint: General Problems/Pain Stated Complaint: NAUSEA/CHILLS/NUMB LIPS Nursing Triage Note: pt to room by wheelchair. pt states he was sitting in the car today and got overwhelmed with chills, nausea, and numb lips. pt A&Ox4 on arrival, speech normal Source of Information: Patient Exam Limitations: No Limitations (JO ANN AGUILAR APRN) History of Present Illness Date Seen by Provider: Aug 16, 2021 Time Seen by Provider: 15:31 Initial Comments To ER by private vehicle with reports of sudden onset of chills nausea tingling and numbness around his lips. He denies chest pain. This occurred suddenly while he was at [facility] getting a new phone prior to leaving [facility] to go to [place] for a conference. He had a prostate biopsy [address] Deleon. Denies any symptoms or troubles until today. He did follow-up with Dr. Deleon today and had persistent blood in his semen and was started empirically on Bactrim. Today would have been his first dose though I do not believe he is actually started it yet. Timing/Duration: 1-2 Days Severity: Moderate Associated Systoms: Fever/Chills, Nausea/Vomiting (JO ANN AGUILAR APRN) Allergies and Home Medications Allergies Coded Allergies: Penicillins (Unverified Allergy, Mild, HIVES, HAS RECEIVED ANCEF PREVIOUSLY, 08/09/18) Patient Home Medication List Home Medication List Reviewed: Yes (JO ANN AGUILAR APRN) Aspirin (Aspirin EC) 81 Mg Tablet.dr, 81 MG PO DAILY, (Reported) Entered as Reported by: YASHIRA CHAVIRA on 03/11/16 1027 Atorvastatin Calcium (Atorvastatin Calcium) 40 Mg Tablet, 40 MG PO HS, (Reported) Entered as Reported by: NATAN TATE on 06/12/21 1257 Ferrous Sulfate (Ferrous Sulfate) 325 Mg Tablet, 325 MG PO BID, (Reported) Entered as Reported by: NATAN TATE on 06/12/21 1257 Lisinopril (Lisinopril) 10 Mg Tablet, 10 MG PO HS, (Reported) Entered as Reported by: NATAN TATE on 06/12/21 1257 Metoprolol Succinate (Metoprolol Succinate) 25 Mg Tab.er.24h, 25 MG PO DAILY, (Reported) Entered as Reported by: NATAN TATE on 06/12/21 1257 Pantoprazole Sodium (Protonix) 40 Mg Tablet.dr, 40 MG PO BID, (Reported) Entered as Reported by: YASHIRA CHAVIRA on 03/11/16 1027 Tamsulosin HCl (Flomax) 0.4 Mg Cap, 0.4 MG PO BID, (Reported) Entered as Reported by: NATAN TATE on 06/12/21 1257 Review of Systems Review of Systems Constitutional: see HPI, chills, fever EENTM: see HPI Respiratory: no symptoms reported Cardiovascular: no symptoms reported Genitourinary: no symptoms reported; No dysuria Musculoskeletal: no symptoms reported Skin: no symptoms reported Psychiatric/Neurological: No Symptoms Reported Hematologic/Lymphatic: No Symptoms Reported Immunological/Allergic: no symptoms reported (JO ANN AGUILAR APRN) Past Tyblfcj-Vzwnzv-Aepfkn Hx Patient Social History Tobacco Use?: No Substance use?: No Alcohol Use?: No (JO ANN AGUILAR APRN) Immunizations Up To Date Tetanus Booster (TDap): Less than 5yrs PED Vaccines UTD: No Influenza Vaccine Up-to-Date: Yes; Up-to-Date (JO ANN AGUILAR APRN) Seasonal Allergies Seasonal Allergies: Yes (JO ANN AGUILAR APRN) Past Medical History Surgeries: Yes (coronary stent x2, hitial hernia repair) Coronary Stent, Gallbladder Respiratory: Yes Sleep Apnea Currently Using CPAP: Yes Currently Using BIPAP: No Cardiac: Yes (2 NM, stents placed) Heart Attack, High Cholesterol, Hypertension Neurological: No Reproductive Disorders: No Sexually Transmitted Disease: No HIV/AIDS: No Genitourinary: Yes Prostate Problems Gastrointestinal: Yes Gastroesophageal Reflux, Chronic Diarrhea, Gall Bladder Disease Musculoskeletal: Yes (MUSCLE SPASMS IN BACK and legs) Endocrine: No HEENT: Yes (READING GLASSES) Loss of Vision: Bilateral Hearing Impairment: Hard of Hearing Cancer: No Psychosocial: No Integumentary: Yes (DRY AREAS) Blood Disorders: No Adverse Reaction/Blood Tranf: No (JO ANN AGUILRA APRN) Family Medical History Cancer 19 FATHER (BLADDER) Family history: Cardiovascular disease 19 FATHER, Onset:50's - 60 (BYPASS) Physical Exam Vital Signs Vital Signs - First Documented 08/16/21 15:01 Temp 38.2 Pulse 103 Resp 24 B/P (MAP) 129/69 (89) Pulse Ox 98 (BRUEGGEMANN,MADDIE T MD) Vital Signs Capillary Refill : (JO ANN GAUILAR APRN) Height, Weight, BMI Height: 5'8.00" Weight: 166lbs. 0.0oz. 75.826436hp; 27.00 BMI Method:Stated General Appearance: Anxious, Moderate Distress, Other (Deep rapid breathing anxious appearing. Does have a temperature of 100.8 axillary on arrival.) Eyes: Bilateral Eye Normal Inspection, Bilateral Eye PERRL, Bilateral Eye EOMI HEENT: PERRL/EOMI, TMs Normal Neck: Full Range of Motion, Normal Inspection Respiratory: Normal Breath Sounds, No Accessory Muscle Use, No Respiratory Distress Cardiovascular: Regular Rate, Rhythm, Normal Peripheral Pulses Gastrointestinal: Normal Bowel Sounds, Non Tender, Soft, Other (No abdominal t enderness) Extremity: Normal Capillary Refill, Normal Inspection Neurologic/Psychiatric: Alert, Oriented x3 Skin: Normal Color, Warm/Dry (JO ANN AGUILAR APRN) Focused Exam Lactate Level 08/16/21 15:21: Lactic Acid Level 2.73*H 08/16/21 17:35: Lactic Acid Level 1.16 (MADDIE JUAREZ MD) Lactic Acid Level Laboratory Tests Test 08/16/21 15:21 08/16/21 17:35 Lactic Acid Level 2.73 MMOL/L (0.50-2.00) *H 1.16 MMOL/L (0.50-2.00) (MADDIE JUAREZ MD) Progress/Results/Core Measures Suspected Sepsis SIRS Temperature: Pulse: 103 Respiratory Rate: 24 Laboratory Tests 08/16/21 15:21: White Blood Count 16.2H Blood Pressure 129 /69 Mean: 89 08/16/21 15:21: Lactic Acid Level 2.73*H 08/16/21 17:35: Laboratory Tests 08/16/21 15:21: Creatinine 1.07, INR Comment 1.0, Platelet Count 224, Total Bilirubin 1.0 (JO ANN AGUILAR APRN) Results/Orders Lab Results Laboratory Tests Test 08/16/21 15:04 08/16/21 15:21 08/16/21 17:35 Range/Units Influenza Type A (RT-PCR) Not Detected Not Detecte Influenza Type B (RT-PCR) Not Detected Not Detecte SARS-CoV-2 RNA (RT-PCR) Not Detected Not Detecte White Blood Count 16.2 H 4.3-11.0 10^3/uL Red Blood Count 4.41 4.30-5.52 10^6/uL Hemoglobin 13.3 13.3-17.7 g/dL Hematocrit 38 L 40-54 % Mean Corpuscular Volume 85 80-99 fL Mean Corpuscular Hemoglobin 30 25-34 pg Mean Corpuscular Hemoglobin Concent 35 32-36 g/dL Red Cell Distribution Width 13.1 10.0-14.5 % Platelet Count 224 130-400 10^3/uL Mean Platelet Volume 9.6 9.0-12.2 fL Immature Granulocyte % (Auto) 0 % Neutrophils (%) (Auto) 93 H 42-75 % Lymphocytes (%) (Auto) 5 L 12-44 % Monocytes (%) (Auto) 2 0-12 % Eosinophils (%) (Auto) 0 0-10 % Basophils (%) (Auto) 0 0-10 % Neutrophils # (Auto) 15.1 H 1.8-7.8 X 10^3 Lymphocytes # (Auto) 0.8 L 1.0-4.0 X 10^3 Monocytes # (Auto) 0.3 0.0-1.0 X 10^3 Eosinophils # (Auto) 0.0 0.0-0.3 10^3/uL Basophils # (Auto) 0.0 0.0-0.1 10^3/uL Immature Granulocyte # (Auto) 0.1 0.0-0.1 10^3/uL Neutrophils % (Manual) 95 % Lymphocytes % (Manual) 3 % Monocytes % (Manual) 1 % Reactive Lymphocytes 1 % Microcytosis SLIGHT Prothrombin Time 13.1 12.2-14.7 SEC INR Comment 1.0 0.8-1.4 Activated Partial Thromboplast Time 25 24-35 SEC Urine Color YELLOW Urine Clarity SL CLOUDY Urine pH 8.0 5-9 Urine Specific [place] 1.015 L 1.016-1.022 Urine Protein NEGATIVE NEGATIVE Urine Glucose (UA) NEGATIVE NEGATIVE Urine Ketones NEGATIVE NEGATIVE Urine Nitrite NEGATIVE NEGATIVE Urine Bilirubin NEGATIVE NEGATIVE Urine Urobilinogen 0.2 < = 1.0 MG/DL Urine Leukocyte Esterase 1+ H NEGATIVE Urine RBC (Auto) 3+ H NEGATIVE Urine RBC 25-50 H /HPF Urine WBC 5-10 H /HPF Urine Squamous Epithelial Cells RARE /HPF Urine Crystals NONE /LPF Urine Bacteria TRACE /HPF Urine Casts NONE /LPF Urine Mucus NEGATIVE /LPF Urine Yeast FEW H /HPF Urine Culture Indicated NO Sodium Level 135 135-145 MMOL/L Potassium Level 3.7 3.6-5.0 MMOL/L Chloride Level 102 98-107 MMOL/L Carbon Dioxide Level 18 L 21-32 MMOL/L Anion Gap 15 H 5-14 MMOL/L Blood Urea Nitrogen 9 7-18 MG/DL Creatinine 1.07 0.60-1.30 MG/DL Estimat Glomerular Filtration Rate 78 BUN/Creatinine Ratio 8 Glucose Level 97 70-105 MG/DL Lactic Acid Level 2.73 *H 1.16 0.50-2.00 MMOL/L Calcium Level 9.2 8.5-10.1 MG/DL Corrected Calcium 9.1 8.5-10.1 MG/DL Magnesium Level 1.3 L 1.6-2.4 MG/DL Total Bilirubin 1.0 0.1-1.0 MG/DL Aspartate Amino Transf (AST/SGOT) 19 5-34 U/L Alanine Aminotransferase (ALT/SGPT) 24 0-55 U/L Alkaline Phosphatase 72 40-136 U/L B-Type Natriuretic Peptide 48.6 <100.0 PG/ML Total Protein 6.3 L 6.4-8.2 GM/DL Albumin 4.1 3.2-4.5 GM/DL (MADDIE JUAREZ MD) Medications Given in ED Current Medications Medications Dose Ordered Sig/Barak Route Start Time Stop Time Status Last Admin Dose Admin Ceftriaxone Sodium/Dextrose 50 ml @ 100 mls/hr ONCE ONCE IV 08/16/21 16:15 08/16/21 16:44 DC 08/16/21 16:37 100 MLS/HR Ibuprofen 800 mg ONCE ONCE PO 08/16/21 15:30 08/16/21 15:31 DC 08/16/21 15:33 800 MG Iohexol 100 ml ONCE ONCE IV 08/16/21 17:15 08/16/21 17:16 DC 08/16/21 17:26 100 ML Levofloxacin/ Dextrose 150 ml @ 100 mls/hr ONCE ONCE IV 08/16/21 16:15 08/16/21 17:44 DC 08/16/21 17:06 100 MLS/HR Lorazepam 0.5 mg ONCE PRN IVP 08/16/21 15:30 08/16/21 15:38 0.5 MG Ondansetron HCl 8 mg ONCE ONCE IVP 08/16/21 15:30 08/16/21 15:31 DC 08/16/21 15:33 8 MG Sodium Chloride 100 ml ONCE ONCE IV 08/16/21 17:15 08/16/21 17:16 DC 08/16/21 17:26 80 ML (MADDIE JUAREZ MD) Vital Signs/I&O 08/16/21 15:01 Temp 38.2 Pulse 103 Resp 24 B/P (MAP) 129/69 (89) Pulse Ox 98 (MADDIE JUAREZ MD) Vital Signs/I&O Capillary Refill : (JO ANN AGUILAR APRN) Blood Pressure Mean: 89 Departure Communication (Admissions) 1551-Spoke with Dr. Deleon. He is going out of town for the weekend but would agree with admission and recommends both Rocephin and Levaquin while admitted 1758-CT is unremarkable. He looks much better and is feeling much better. Currently blood pressure 107/66 heart rate 79. Respiratory rate 26. We will put him on Rocephin and Levaquin, admit to Dr. RICH who is on-call for Dr. TERAN this weekend. (JO ANN AGUILAR APRN) Impression Primary Impression: Prostatitis Disposition: ADMITTED INPATIENT Condition: Stable Admissions Decision to Admit Reason: Admit from ER (General) Decision to Admit/Date: Aug 16, 2021 Time/Decision to Admit Time: 15:51 (JO ANN AGUILAR APRN) Departure-Patient Inst. Referrals: ESPERANZA TERAN DO (PCP/Family) Primary Care Physician ATTENDING PHYSICIAN NOTE: I was physically present as attending physician in the emergency department during the care of this patient, but I was not directly involved in the decision making or delivery of care for this patient. (MADDIE JUAREZ MD) JO ANN AGUILAR APRN Aug 16, 2021 15:33 MADDIE JUAREZ MD Aug 16, 2021 19:44
[2021-08-16 15:41] LABS: BASOPHILS % (AUTO) 0 % (0-10); EOSINOPHILS % (AUTO) 0 % (0-10); HEMATOCRIT 38 % (40-54); HEMOGLOBIN 13.3 g/dL (13.3-17.7); LYMPHOCYTES # (AUTO) 0.8 X 10^3 (1.0-4.0); LYMPHOCYTES % (AUTO) 5 % (12-44); MEAN CORPUSCULAR HEMOGLOBIN 30 pg (25-34); MEAN CORPUSCULAR HGB CONC 35 g/dL (32-36); MEAN CORPUSCULAR VOLUME 85 fL (80-99); MEAN PLATELET VOLUME 9.6 fL (9.0-12.2); MONOCYTES # (AUTO) 0.3 X 10^3 (0.0-1.0); MONOCYTES % (AUTO) 2 % (0-12); NEUTROPHILS # (AUTO) 15.1 X 10^3 (1.8-7.8); NEUTROPHILS % (AUTO) 93 % (42-75); PLATELET COUNT 224 10^3/uL (130-400); WHITE BLOOD COUNT 16.2 10^3/uL (4.3-11.0)
[2021-08-16 15:42] LABS: ALBUMIN 4.1 GM/DL (3.2-4.5); POTASSIUM 3.7 MMOL/L (3.6-5.0)
[2021-08-16 15:43] LABS: CALCIUM 9.2 MG/DL (8.5-10.1)
[2021-08-16 15:44] LABS: TOTAL PROTEIN 6.3 GM/DL (6.4-8.2)
[2021-08-16 15:45] LABS: PROTHROMBIN TIME PATIENT 13.1 SEC (12.2-14.7)
[2021-08-16 15:48] LABS: CREATININE SERUM 1.07 MG/DL (0.60-1.30)
[2021-08-16 15:51] LABS: MAGNESIUM 1.3 MG/DL (1.6-2.4)
[2021-08-16 15:57] LABS: BILIRUBIN,URINE NEGATIVE (NEGATIVE); CLARITY,URINE SL CLOUDY; COLOR,URINE YELLOW; GLUCOSE, URINE (UA) NEGATIVE (NEGATIVE); KETONES,URINE NEGATIVE (NEGATIVE); LEUKOCYTE ESTERASE ,URINE 1+ (NEGATIVE); NITRITE,URINE NEGATIVE (NEGATIVE); PROTEIN,URINE NEGATIVE (NEGATIVE)
[2021-08-16 16:03] LABS: LYMPHOCYTES % (MANUAL) 3 %; MICROCYTOSIS SLIGHT; MONOCYTES % (MANUAL) 1 %; NEUTROPHILS % (MANUAL) 95 %; REACTIVE LYMPHOCYTES 1 %
[2021-08-16] MEDS ORDERED: cefTRIAXone 1 GM PRE-MIX 50 ML IV ONE (16:15)
[2021-08-16 16:16] LABS: BACTERIA,URINE TRACE /HPF; RBC,URINE 25-50 /HPF; SQUAMOUS EPITHELIAL CELL,UR RARE /HPF; YEAST,URINE FEW /HPF
[2021-08-16] MEDS ORDERED: IOHEXOL 350 MG/ML 100 ML (OMNIPAQUE 350) VIAL IV ONE (17:15)
[2021-08-16] MEDS ORDERED: HOLD METFORMIN - RECEIVED CONTRAST 20 ML VIAL IV SCH (17:15)
[2021-08-16] MEDS ORDERED: NS 100 ML (IVPB) BAG IV ONE (17:15)
--- NOTE | 2021-08-16 17:52 | Diagnostic Imaging Report ---
EXAMINATION: CT abdomen and pelvis with intravenous contrast. TECHNIQUE: Multiple contiguous axial images were obtained through the abdomen and pelvis after the uneventful administration of intravenous contrast. All CT scans use one or more of the following dose optimizing techniques: automated exposure control, MA and/or KvP adjustment based on patient size and exam type or iterative reconstruction. HISTORY: Sepsis, recent prostate biopsy 05/22/2010 COMPARISON: None available. FINDINGS: Limited views of the lower thorax show small hiatal hernia. The liver is normal without focal lesion. There is no biliary ductal dilation. Gallbladder is surgically absent. Pancreas is normal. Spleen is normal. Adrenal glands are normal. There is a simple cyst in the left kidney. No suspicious renal lesions. There is no hydronephrosis. Urinary bladder is normal. No prostatic abscess is seen. Bowel is normal in caliber without obstruction or inflammation. No free fluid or air. No abdominal or pelvic lymphadenopathy. Aorta is normal in caliber without aneurysm. There are no suspicious osseus lesions. IMPRESSION: 1. No acute abnormality in the abdomen or pelvis. Dictated by: Dictated on workstation # [id number]
--- NOTE | 2021-08-16 17:53 | Diagnostic Imaging Report ---
EXAMINATION: Chest 1 view HISTORY: Chest pain COMPARISON: 06/12/2021 FINDINGS: The lungs are clear without edema or pneumonia. No pleural effusion or pneumothorax. Heart size is normal. Median sternotomy wires are aligned. There is fracturing of the 4th from the top wire. This is unchanged. IMPRESSION: 1. Clear lungs. Dictated by: Dictated on workstation # [id number]
[2021-08-16] MEDS: LACTATED RINGERS 1,000 ML IV SCH (19:45)
[2021-08-16 20:00] VITALS: BP 111/69
[2021-08-16] MEDS ORDERED: LORazepam 0.5 MG (ATIVAN) TABLET PO PRN (22:00)
[2021-08-16] MEDS ORDERED: ONDANSETRON 4 MG/2 ML (SDV) Z0FRAN IV PRN (22:00)
[2021-08-16] MEDS ORDERED: PROMETHAZINE INJ 25 MG/ML (PHENERGAN) AMP IVP PRN (22:00)
[2021-08-17 00:15] VITALS: BP 106/71
[2021-08-17] MEDS: ACETAMINOPHEN 325 MG TABLET PO PRN ×2 (00:53→16:06)
[2021-08-17] MEDS: IBUPROFEN 600 MG (MOTRIN) TAB PO PRN (02:52)
[2021-08-17] MEDS: LACTATED RINGERS 1,000 ML IV SCH ×3 (02:52→22:18)
[2021-08-17 04:00] VITALS: BP 113/63
[2021-08-17 06:15] LABS: BASOPHILS % (AUTO) 0 % (0-10); EOSINOPHILS % (AUTO) 0 % (0-10); HEMATOCRIT 36 % (40-54); HEMOGLOBIN 12.1 g/dL (13.3-17.7); LYMPHOCYTES # (AUTO) 0.6 10^3/uL (1.0-4.0); LYMPHOCYTES % (AUTO) 4 % (12-44); MEAN CORPUSCULAR HEMOGLOBIN 30 pg (25-34); MEAN CORPUSCULAR HGB CONC 34 g/dL (32-36); MEAN CORPUSCULAR VOLUME 87 fL (80-99); MEAN PLATELET VOLUME 10.4 fL (9.0-12.2); MONOCYTES # (AUTO) 0.9 10^3/uL (0.0-1.0); MONOCYTES % (AUTO) 5 % (0-12); NEUTROPHILS # (AUTO) 14.5 10^3/uL (1.8-7.8); NEUTROPHILS % (AUTO) 90 % (42-75); PLATELET COUNT 184 10^3/uL (130-400); WHITE BLOOD COUNT 16.1 10^3/uL (4.3-11.0)
[2021-08-17 06:32] LABS: POTASSIUM 3.7 MMOL/L (3.6-5.0)
[2021-08-17 06:33] LABS: CALCIUM 8.5 MG/DL (8.5-10.1)
[2021-08-17 06:37] LABS: CREATININE SERUM 1.08 MG/DL (0.60-1.30)
[2021-08-17 07:29] VITALS: BP 117/65
--- NOTE | 2021-08-17 08:19 | History & Physical ---
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 HE PRESENTED TO THE EMERGENCY DEPARTMENT LAST NIGHT WITH COMPLAINT OF CHILLS OF SUDDEN ONSET. THE PATIENT REPORTS THAT HE HAD A PROSTATE BIOPSY ABOUT 10 DAYS AGO, HAD A FOLLOW UP WITH DR. PINEDA YESTERDAY AND HAD BEEN FEELING GREAT, HOWEVER ABOUT 2 HOURS LATER HE WAS AT THE [employer] AND FELT SUDDENLY CHILLED. HE REPORTS SITTING IN HIS CAR FOR ABOUT AN HOUR WITH THE HEATER GOING, THINKING HE WOULD FEEL BETTER, BUT CONTINUED TO HAVE WORSENING SYMPTOMS AND FINALLY PRESENTED TO THE HOSPITAL. HE REPORTS THAT HE HAS NOT HAD ANY ISSUES EXCEPT FOR BLOOD IN HIS SEMEN PERSISTING. Date of Admission Aug 16, 2021 at 17:35 Date Seen by a Provider: Aug 17, 2021 Time Seen by a Provider: 09:00 I consulted on this patient on 08/17/21 08:18 Attending Physician Chary Frey DO Admitting Physician Fabricio Sargent MD Consult Allergies and Home Medications Allergies Coded Allergies: Penicillins (Unverified Allergy, Mild, HIVES, HAS RECEIVED ANCEF PREVIOUSLY, 08/09/18) Patient Home Medication List Home Medication List Reviewed: Yes Aspirin (Aspirin EC) 81 Mg Tablet., 81 MG PO DAILY, (Reported) Entered as Reported by: YASHIRA CHAVIRA on 03/11/16 1027 Last Action: Continued Atorvastatin Calcium (Atorvastatin Calcium) 40 Mg Tablet, 40 MG PO HS, (Reported) Entered as Reported by: NATAN TATE on 06/12/21 1257 Last Action: Continued Ferrous Sulfate (Ferrous Sulfate) 325 Mg Tablet, 325 MG PO BID, (Reported) Entered as Reported by: NATAN TATE on 06/12/21 1257 Last Action: Held Metoprolol Succinate (Metoprolol Succinate) 25 Mg Tab.er.24h, 25 MG PO DAILY, (Reported) Entered as Reported by: NATAN TATE on 06/12/21 1257 Last Action: Continued Pantoprazole Sodium (Protonix) 40 Mg Tablet.dr, 40 MG PO BID, (Reported) Entered as Reported by: YASHIRA CHAVIRA on 03/11/16 1027 Last Action: Continued Tamsulosin HCl (Flomax) 0.4 Mg Cap, 0.4 MG PO BID, (Reported) Entered as Reported by: NATAN TATE on 06/12/21 1257 Last Action: Continued Discontinued Medications Lisinopril (Lisinopril) 10 Mg Tablet, 10 MG PO HS, (Reported) Discontinued Reason: No Longer Taking Entered as Reported by: NATAN TATE on 06/12/21 1257 Last Action: Discontinued Past Geekoum-Nuruoo-Wkyosy Hx Patient Social History Marrital Status: Living Status: LIVES AT HOME WITH SPOUSE 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) Tobacco Use?: No Use of E-Cig and/or Vaping dev: No Substance use?: No Alcohol Use?: No Pt feels they are or have been: No Immunizations Up To Date Date of Influenza Vaccine: Apr 01, 2021 First/Initial COVID19 Vaccinat: AUGUST 2020 Second COVID19 Vaccination Raj: SEPTEMBER 2020 Tetanus Booster (TDap): Less Than 5 Years Hepatitis A: No Hepatitis B: No PED Vaccines UTD: No Seasonal Allergies Seasonal Allergies: Yes Current Status Advance Directives: No Communicates: Verbally Primary Language: Frisian Preferred Spoken Language: Frisian Is interpretation needed?: No Sensory deficits: Vision impairment Additional sensory deficits: NEWS READING GLASSES Implanted or Applied Medical D: Stents Past Medical History Surgeries: CABG (HARVESTING FROM LEFT FOREARM), Coronary Stent, Gallbladder Sleep Apnea Currently Using CPAP: Yes Currently Using BIPAP: No Coronary Artery Disease, Heart Attack, High Cholesterol, Hypertension Sexually Transmitted Disease: No HIV/AIDS: No Prostate Problems Gastroesophageal Reflux, Chronic Diarrhea, Gall Bladder Disease Loss of Vision: Bilateral Hearing Impairment: Hard of Hearing Blood Disorders: No Adverse Reaction/Blood Tranf: No Family Medical History Reviewed and Corrections made Cancer 19 FATHER (BLADDER) Family history: Cardiovascular disease 19 FATHER, Onset:50's - 60 (BYPASS) Heart Disease, Cancer (BLADDER CANCER), CAD Over 55 Years Old, Hypertension Review of Systems Constitutional: chills; No diaphoresis, No dizziness; fever, malaise, weakness EENTM: No hoarseness, No throat pain Respiratory: No cough, No dyspnea on exertion, No short of breath Cardiovascular: No chest pain; Hx of Intervention; No palpitations Gastrointestinal: No abdominal pain, No constipation; diarrhea (INTERMITENT SINCE REMOVAL OF GALLBLADDER); No nausea, No vomiting Genitourinary: No dysuria, No frequency, No hematuria, No hesitancy; other (BLOOD IN SEMEN) Musculoskeletal: muscle weakness (IMPROVED) Skin: no symptoms reported Psychiatric/Neurological: Denies Anxiety, Denies Depressed, Denies Weakness All Other Systems Reviewed Negative Unless Noted: Yes Physical Exam Vital Signs Vital Signs - First Documented 08/16/21 08/16/21 15:01 18:38 Temp 38.2 Pulse 103 Resp 24 B/P (MAP) 129/69 (89) Pulse Ox 98 O2 Delivery Room Air Capillary Refill : Height, Weight, BMI Height: 5'8.00" Weight: 166lbs. 0.0oz. 75.042324su; 28.90 BMI Method:Stated General Appearance: No Apparent Distress, WD/WN HEENT: PERRL/EOMI, Pharynx Normal Neck: Full Range of Motion, Normal Inspection, Non Tender, Supple; No Carotid Bruit Respiratory: Chest Non Tender, Lungs Clear, Normal Breath Sounds, No Accessory Muscle Use, No Respiratory Distress Cardiovascular: Regular Rate, Rhythm, No Edema, No Murmur, Normal Peripheral Pulses Gastrointestinal: Normal Bowel Sounds, No Organomegaly, No Pulsatile Mass, Non Tender, Soft Rectal: Deferred Back: Normal Inspection Extremity: Normal Capillary Refill, Normal Inspection, Non Tender, No Calf Tenderness, No Pedal Edema Neurologic/Psychiatric: Alert, Oriented x3, No Motor/Sensory Deficits, Normal Mood/Affect Skin: Normal Color, Warm/Dry Lymphatic: No Adenopathy Assessment/Plan Assessment and Plan SEPSIS PROSTATITIS WITH UTI LEUKOCYTOSIS LACTIC ACIDOSIS HYPERTENSION CHRONIC IRON DEFICIENCY ANEMIA HYPERLIPIDEMIA HX OF CORONARY ARTERY DISEASE BPH SLEEP APNEA SEPSIS DUE TO PROSTATITIS WITH UTI - PT ON IV LEVAQUIN AND ROCEPHIN - CONTINUE UNTIL HIS CULTURE REPORT IS RETURNED WITH SENSITIVITIES - - PRELIMINARY REPORT FOLLOWS: - URINE CULTURE Preliminary Verified 08/17/21-0753Preliminary RML Source: URINE / CLEAN CATCH Order Location: Emergency Room - [facility] 1 PROBABLE KLEBSIELLA/ENTEROBACT 10,000/ML - 100,000/ML RAPID ID TEST VCP 08/17 07:50 LEUKOCYTOSIS - SHOULD IMPROVE WITH TREATMENT OF INFECTION, REPEAT LABS IN MORNING. LACTIC ACIDOSIS - - RESOLVED SHORTLY AFTER ADMISSION HYPERTENSION - RESUME METOPROLOL TOMORROW, BP LOW TODAY. CHRONIC IRON DEFICIENCY ANEMIA - SUPPORTIVE CARE, CONTINUE WITH ORAL IRON. 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 DVT PROPHYLAXIS WITH LOVENOX AND SCD'S GI PROPHYLAXIS WITH PROBIOTICS AND PPI Admission Diagnosis SEPSIS PROSTATITIS WITH UTI LEUKOCYTOSIS LACTIC ACIDOSIS HYPERTENSION CHRONIC IRON DEFICIENCY ANEMIA HYPERLIPIDEMIA HX OF CORONARY ARTERY DISEASE BPH SLEEP APNEA Admission Status: Inpatient Order (span 2 midnights) Reason for Inpatient Admission: PT WITH SEPSIS, WILL REQUIRE AT LEAST 2 MIDNIGHTS DEPENDING ON HIS RESPONSE TO THE ANTIBIOTICS, MAY END UP WITH 72 HOURS INSTEAD OF 48. FABRICIO SARGENT MD Aug 17, 2021 08:19
[2021-08-17] MEDS: ENOXAPARIN 40 MG/0.4 ML (LOVENOX) SYR SC SCH (11:12)
[2021-08-17] MEDS: TAMSULOSIN 0.4 MG (FLOMAX) CAP PO SCH ×2 (11:12→20:10)
[2021-08-17 11:16] VITALS: BP 117/68
[2021-08-17] MEDS: LACTOBACILLUS ACIDOPHILUS (PROBIOTIC) CAPSULE PO SCH ×2 (13:29→17:38)
[2021-08-17] MEDS: cefTRIAXone 1 GM PRE-MIX 50 ML IV SCH (15:19)
[2021-08-17 16:00] VITALS: BP 134/65
[2021-08-17 20:00] VITALS: BP 132/71
[2021-08-17] MEDS: PANTOPRAZOLE 40 MG (PROTONIX) TAB PO SCH (20:10)
[2021-08-18 00:45] VITALS: BP 117/73
[2021-08-18 04:27] VITALS: BP 137/73
[2021-08-18] MEDS: LACTATED RINGERS 1,000 ML IV SCH (06:00)
[2021-08-18] MEDS: TAMSULOSIN 0.4 MG (FLOMAX) CAP PO SCH (08:02)
[2021-08-18] MEDS: IBUPROFEN 600 MG (MOTRIN) TAB PO PRN (08:02)
[2021-08-18] MEDS: LACTOBACILLUS ACIDOPHILUS (PROBIOTIC) CAPSULE PO SCH ×2 (08:02→11:16)
[2021-08-18] MEDS: PANTOPRAZOLE 40 MG (PROTONIX) TAB PO SCH (08:02)
[2021-08-18 08:10] VITALS: BP 132/77
[2021-08-18] MEDS ORDERED: ASPIRIN E.C. 81 MG (ECOTRIN) TAB PO SCH (09:00)
--- NOTE | 2021-08-18 11:02 | Discharge Summary ---
Diagnosis/Chief Complaint Date of Admission Aug 16, 2021 at 17:35 Date of Discharge 08/18/21 Discharge Date: Aug 18, 2021 Discharge Time: 11:00 Admission Diagnosis Admission Diagnosis SEPSIS PROSTATITIS WITH UTI - KLEBSIELLA LEUKOCYTOSIS LACTIC ACIDOSIS HYPERTENSION CHRONIC IRON DEFICIENCY ANEMIA HYPERLIPIDEMIA HX OF CORONARY ARTERY DISEASE BPH SLEEP APNEA Discharge Diagnosis SEPSIS PROSTATITIS WITH UTI - KLEBSIELLA LEUKOCYTOSIS LACTIC ACIDOSIS HYPERTENSION CHRONIC IRON DEFICIENCY ANEMIA HYPERLIPIDEMIA HX OF CORONARY ARTERY DISEASE BPH SLEEP APNEA Reason Hospital Visit PT IS A 61 Y/O MALE WHO IS A 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 HE PRESENTED TO THE EMERGENCY DEPARTMENT LAST NIGHT WITH COMPLAINT OF CHILLS OF SUDDEN ONSET. THE PATIENT REPORTS THAT HE HAD A PROSTATE BIOPSY ABOUT 10 DAYS AGO, HAD A FOLLOW UP WITH DR. PINEDA YESTERDAY AND HAD BEEN FEELING GREAT, HOWEVER ABOUT 2 HOURS LATER HE WAS AT THE [employer] AND FELT SUDDENLY CHILLED. HE REPORTS SITTING IN HIS CAR FOR ABOUT AN HOUR WITH THE HEATER GOING, THINKING HE WOULD FEEL BETTER, BUT CONTINUED TO HAVE WORSENING SYMPTOMS AND FINALLY PRESENTED TO THE HOSPITAL. HE REPORTS THAT HE HAS NOT HAD ANY ISSUES EXCEPT FOR BLOOD IN HIS SEMEN PERSISTING. Discharge Summary Discharge Physical Examination Allergies: Coded Allergies: Penicillins (Unverified Allergy, Mild, HIVES, HAS RECEIVED ANCEF PREVIOUSLY, 08/09/18) Vitals & I&Os Vital Signs Date Time Temp Pulse Resp B/P (MAP) Pulse Ox O2 Delivery O2 Flow Rate FiO2 08/18/21 11:44 36.9 53 18 162/76 (104) 95 Room Air General Appearance: Alert, Oriented X3, Cooperative HEENT: Atraumatic, PERRLA, Mucous Memb Moist/[place] Respiratory: Clear to Auscultation, Normal Air Movement Cardiovascular: Regular Rate Abdominal: Normal Bowel Sounds, Soft, No Tenderness Extremities: No Clubbing, No Cyanosis Skin: No Rashes Neuro: Normal Speech, Cranial Nerves 3-12 NL Psych/Mental Status: Mental Status NL, Mood NL Hospital Course Was the Problem List Reviewed?: Yes SEPSIS PROSTATITIS WITH UTI - KLEBSIELLA LEUKOCYTOSIS LACTIC ACIDOSIS HYPERTENSION CHRONIC IRON DEFICIENCY ANEMIA HYPERLIPIDEMIA HX OF CORONARY ARTERY DISEASE BPH SLEEP APNEA SEPSIS DUE TO PROSTATITIS WITH UTI - PT ON IV LEVAQUIN AND ROCEPHIN - CONTINUED TODAY. - DISCUSSED WITH PATIENT AND HIS FAMILY WELL WITH DR. PINEDA - PLAN WAS FOR PATIENT TO BE DISCHARGED WITH LEVOFLOXACIN 500MG DAILY X 10 DAYS AND BACTRIM DS BID X 10 DAYS - PT AWARE OF NEED TO INCREASE FLUIDS, AT LEAST 64 OUNCES OF FLUID DAILY, AND CALL WITH ANY CONCERN OF WORSENING URINARY OUTPUT, BLOOD IN URINE, PAIN WITH URINATION, FEVER, CHILLS, ETC. - LAB TO BE OBTAINED ON THURSDAY AND THURSDAY TO ASSESS RENAL FUNCTION. - COPY SHOULD BE SENT TO DR. TERAN'S OFFICE. - FOLLOW UP WITH DR. PINEDA AND DR. TERAN IN A WEEK - FINAL REPORT FOLLOWS: URINE CULTURE Final Verified 08/18/21-0913Final RML Source: URINE / CLEAN CATCH Order Location: Emergency Room - [place] Organism 1 Klebsiella pneumoniae 10,000/ML - 100,000/ML SUSCEPTIBILITY REPORTED 08/18 09:20 RAPID ID TEST VCP 08/17 07:50 RML REPORTED KLEB PNEUMO 08/17 13:05 Kleb pneum INTERP AMPICILLIN R GENTAMICIN S Cefuroxime S CEFAZOLIN S CEFTRIAXONE S AMOX/CLAV S TRIMETH/SULFA S LEVOFLOXACIN S CIPROFLOXACIN S MEROPENEM S NITROFURANTOIN R LEUKOCYTOSIS - SHOULD IMPROVE WITH TREATMENT OF INFECTION, REPEAT LABS IN MORNING. LACTIC ACIDOSIS - - RESOLVED SHORTLY AFTER ADMISSION HYPERTENSION - RESUMED METOPROLOL CHRONIC IRON DEFICIENCY ANEMIA - SUPPORTIVE CARE, CONTINUE WITH ORAL IRON. HYPERLIPIDEMIA WITH HX OF CORONARY ARTERY DISEASE - RESUMED STATIN THERAPY BPH - PT ON TAMSULOSIN - RESUMED HIS BID DOSING SLEEP APNEA - CPAP USE AT HOME, RESUMED AND WILL CONTINUE OUTPATIENT. DVT PROPHYLAXIS WITH LOVENOX AND SCD'S GI PROPHYLAXIS WITH PROBIOTICS AND PPI Discharge Condition at discharge IMPROVING Instructions to patient/family Please see electronic discharge instructions given to patient. Discharge Medications Reviewed and agree with Discharge Medication list on patient's Discharge Instruction sheet FABRICIO RICH MD Aug 18, 2021 11:02
[2021-08-18] MEDS ORDERED: SULF1TAB38 PO (11:09)
[2021-08-18] MEDS ORDERED: LACT1CAP7 PO (11:09)
[2021-08-18] MEDS ORDERED: LEVO500T81 PO (11:09)
--- NOTE | 2021-08-18 11:13 | Discharge Inst-Simple/Standard ---
Discharge Inst-Standard Reconcile Patient Problems Problems Reviewed?: Yes Discharge Medications New, Converted or Re-Newed RX: Transmitted to Pharmacy ([facility]) Patient Instructions/Follow Up Plan of Care/Instructions/FU: [address] deleon [address] chauhan check renal function on thursday08/20/2021 and Thursday08/23/21 Activity as Tolerated: Yes (stay off of work for the next week as treatment is being completed, increase fluid intake and monitor urine out put and temperature) Discharge Diet: Regular Diet Health Concerns: SEPSIS PROSTATITIS WITH UTI LEUKOCYTOSIS LACTIC ACIDOSIS HYPERTENSION CHRONIC IRON DEFICIENCY ANEMIA HYPERLIPIDEMIA HX OF CORONARY ARTERY DISEASE BPH SLEEP APNEA Return to The Hospital For: any concern for worsening symptoms, fever greater than 101F, blood in urine, recurrent chills, fever, or other signs of worsening infection, or any lifethreatening illness or injury Medication List: Active Scripts Active Bactrim Ds Tablet (Sulfamethoxazole/Trimethoprim) 1 Each Tablet 1 Each PO BID 10 Days (per Dr. Deleon pt to be on both bactrim and levaquin to be taken for treatment of prostatitis and klebsiella uti) Levofloxacin 500 Mg Tablet 500 Mg PO DAILY (per Dr. Deleon pt to be on both bactrim and levaquin to be taken for treatment of prostatitis and klebsiella uti) Acidophilus-Pectin Capsule (Lactobacillus Acidophilus/Pect) 1 Each Capsule 1 Each PO TIDWM 1 cap po daily x 10 days then three times weekly thereafter Reported Flomax (Tamsulosin HCl) 0.4 Mg Cap 0.4 Mg PO BID Metoprolol Succinate 25 Mg Tab.er.24h 25 Mg PO DAILY Ferrous Sulfate 325 Mg Tablet 325 Mg PO BID Atorvastatin Calcium 40 Mg Tablet 40 Mg PO HS Aspirin EC (Aspirin) 81 Mg Tablet. 81 Mg PO DAILY Protonix (Pantoprazole Sodium) 40 Mg Tablet. 40 Mg PO BID My orders: Orders - FABRICIO RICH MD Attending Discharge Inpt/Inobs (08/18/21 11:02) FABRICIO RICH MD Aug 18, 2021 11:13
[2021-08-18] MEDS: ENOXAPARIN 40 MG/0.4 ML (LOVENOX) SYR SC SCH (11:15)
[2021-08-18] MEDS: cefTRIAXone 1 GM PRE-MIX 50 ML IV SCH (11:16)
[2021-08-18 11:44] VITALS: BP 162/76
== END 2021-08-18 12:55 | disposition home or self-care (01) | DRG 872 ==
LOC: EDUNIT# 14:59 → ER 15:02 → 4TH 17:35
PROVIDERS: ADMIT Family Medicine; ATTEND Family Medicine
DX: A41.9 Sepsis, unspecified organism (principal); N39.0 Urinary tract infection, site not specified; E87.2 Acidosis; N41.9 Inflammatory disease of prostate, unspecified; B96.1 Klebsiella pneumoniae [K. pneumoniae] as the cause of diseases classified elsewhere; I10 Essential (primary) hypertension; D50.9 Iron deficiency anemia, unspecified; I25.10 Atherosclerotic heart disease of native coronary artery without angina pectoris; N40.0 Benign prostatic hyperplasia without lower urinary tract symptoms; G47.30 Sleep apnea, unspecified; E78.00 Pure hypercholesterolemia, unspecified; K21.9 Gastro-esophageal reflux disease without esophagitis; Z20.822 Contact with and (suspected) exposure to COVID-19; Z79.82 Long term (current) use of aspirin; Z79.899 Other long term (current) drug therapy; Z95.1 Presence of aortocoronary bypass graft; Z95.5 Presence of coronary angioplasty implant and graft; I25.2 Old myocardial infarction
CPT/HCPCS: 36415; 71045; 74177; 80048; 80053; 81000; 83605; 83735; 83880; 85007; 85025; 85027; 85610; 85730; 87040; 87077; 87088; 87186; 87636; 93041

== ENCOUNTER → 2022-05-27 | Outpatient (CLI) | payer BC ==
[~2022-05-27] MED LIST changes: +LACT1CAP7 PO; +LEVO-55 PO; +SULF1TAB38 PO
== END ==
LOC: CARD 07:54
PROVIDERS: ATTEND Internal Medicine Cardiovascular Disease
DX: I11.9 Hypertensive heart disease without heart failure (principal); I35.1 Nonrheumatic aortic (valve) insufficiency; I25.10 Atherosclerotic heart disease of native coronary artery without angina pectoris
CPT/HCPCS: 93306